=== PATIENT | female | born 1995 | race Caucasian/White ===

== ENCOUNTER 2019-02-14 13:10 | Day surgery (SDC) | payer OTHER ==
[2019-02-14 13:49] VITALS: BP 118/80; TEMP 98.1; BMI 26.8
[2019-02-14] MEDS ORDERED: hydrALAZINE 20 MG/ML VIAL SLOW IVP PRN (14:16)
--- NOTE | 2019-02-14 14:18 | PDOC.LDHP ---
Labor and Delivery H&P HPI: Here here for CTX Patient miguel Scherer 23 yo G1 at 39.4 weeks here for irregular CTX, no LOF, no VB. Good FM. She has an IOL for 02/28. CTC started at 0300. Review of Systems: Completed and as mehran HPI Current gestational age (weeks): 39 (4 days) Dating criteria: last menstrual period Grav: 1 Para: 0 Current complications: none Abnormal US findings: No Past Medical History: None FHX: Aortic Anerysm...but her past eval was negative Current medications: pre- vitamins Previous surgical history: none Allergies/Adverse Reactions: Allergies Allergy/AdvReac Type Severity Reaction Status Date / Time No Known Allergies Allergy Verified 02/14/19 13:41 Social history: none - Physical Exam Vital signs reviewed and normal: yes (118/71 afebrile 78) General: NAD Heart: RRR Lungs: CTAB Abdomen: gravid Extremeties: no edema FHT: category 1 [place] contractions every: contractions every 2 min - Vaginal Exam cm dilated: 1 Effacement: 50% Station: -2 - Assessment Full term, latent phase, neg GBS and med HX. NST cat 1 - Plan Plan: observation in L&D (Recheck in 2 hours. Pain control prn)
--- NOTE | 2019-02-14 15:49 | PDOC.EVN ---
Event Note - Event Note Event Note: checked at 2 hours unchanged contractions spaced out to 5-10 patient feeling contractions have weakened Will send home with strong return precautions, contractionsn q5min, ROM, decreased FM, or fever
== END 2019-02-14 15:50 | disposition home or self-care (01) ==
LOC: L&D/OP 13:10
PROVIDERS: ATTEND Obstetrics & Gynecology
DX: O47.1 False labor at or after 37 completed weeks of gestation (principal); Z3A.39 39 weeks gestation of pregnancy
CPT/HCPCS: 99283

== ENCOUNTER 2019-02-25 22:06 | Inpatient (IN) | payer OTHER ==
[2019-02-25 22:37] VITALS: BMI 26.2
--- NOTE | 2019-02-25 22:50 | PDOC.LDHP ---
Labor and Delivery H&P Chief complaint: contractions HPI: post term co ctx. Current gestational age (weeks): 40 Due date: 02/20/19 Dating criteria: last menstrual period, first trimester ultrasound Grav: 1 OB History Details: uncomplicated Current complications: none Abnormal US findings: No Past Medical History: fh of aortic anurysm pt screening negative Current medications: pre-[place] vitamins Previous surgical history: none Allergies/Adverse Reactions: Allergies Allergy/AdvReac Type Severity Reaction Status Date / Time No Known Allergies Allergy Verified 02/25/19 22:26 Social history: none - Physical Exam Vital signs reviewed and normal: yes General: NAD, resting, breathing through contractions Heart: RRR Lungs: CTAB Abdomen: NTTP Extremeties: no edema FHT: category 1 (no decels. minimal accels) - Vaginal Exam cm dilated: 1 Effacement: 90% Station: -2 - OB Labs Blood type: O RH: positive Antibody Screen: negative HIV: negative RPR: negative HEPSAg: negative GBS: negative Urine drug screen: negative Rubella: immune - Assessment L&D Assessment: term patient in labor - Plan Plan: admit to L&D, labor augmentation if indicated
[2019-02-25] MEDS ORDERED: FLU VACC QS2019-20(6MOS UP)/PF 60 MCG/0.5 ML SYRINGE IM ONE (23:00)
[2019-02-25] MEDS ORDERED: Butorphanol Tartrate 1 MG/ML VIAL SLOW IVP PRN (23:04)
[2019-02-25] MEDS ORDERED: HYDROcodone/Acetaminophen 5/325 mg Tablet PO PRN ×2 (23:04)
[2019-02-25] MEDS ORDERED: hydrALAZINE 20 MG/ML VIAL SLOW IVP PRN (23:04)
[2019-02-25] MEDS ORDERED: Lidocaine 1% (PF) 30 ML VIAL SC PRN (23:04)
[2019-02-25] MEDS ORDERED: Ondansetron PF 4 MG/2 ML Vial IVP PRN (23:04)
[2019-02-25] MEDS ORDERED: Promethazine HCl 25 MG/ML VIAL IM PRN (23:04)
[2019-02-25] MEDS ORDERED: Ibuprofen 800 MG TAB PO PRN (23:04)
[2019-02-25] MEDS ORDERED: NS / Oxytocin 40 units/1000ml 1,000 ML IV PRN (23:04)
[2019-02-25] MEDS ORDERED: Lactated Ringer's 1,000 ML IV SCH (23:15)
[2019-02-25] MEDS ORDERED: NS w/ Oxytocin 10 units 500 ML IV SCH (23:15)
[2019-02-25 23:17] LABS: Hemoglobin 12.8 g/dL (12.0-16.0); Mean Corpuscular HGB CONC 35.2 g/dL (32.0-36.0); Mean Corpuscular Volume 82.3 fL (78.0-98.0); Mean Platelet Volume 8.3 fL (7.4-10.4); Platelet Count 180 thou/uL (130-400); RBC Distribution Width 12.3 % (11.5-14.5); Red Blood Cell (RBC) Count 4.43 mill/uL (4.20-5.40); White Blood Cell (WBC) Count 14.3 thou/uL (4.8-10.8)
[2019-02-25] MEDS: Lactated Ringer's 1,000 ML IV SCH (23:53)
[2019-02-25 23:55] LABS: HBSAg Index 0.17 S/CO (0-0.99); Hep B Surf Ag Non-Reactive S/CO (NonReactive)
[2019-02-25 23:58] LABS: Syphilis Antibody Nonreactive (Nonreactive); Syphilis Antibody Index 0.04 S/CO (<1.00 Non-Reactive)
[2019-02-26] MEDS ORDERED: Fentanyl 4 mcg/Bup 0.1% Cadd 100 ML ONE ×2 (00:39→06:18)
[2019-02-26] MEDS ORDERED: Acetaminophen 325 MG TAB PO PRN (02:54)
[2019-02-26] MEDS ORDERED: ePHEDrine/0.9% NaCl/PF SYRINGE 50 mg/10 ml SLOW IVP PRN (02:54)
[2019-02-26] MEDS ORDERED: Ondansetron PF 4 MG/2 ML Vial IVP PRN (02:54)
[2019-02-26] MEDS ORDERED: Hydrocerin (Eucerin) Cream 120 gm Jar TOP PRN (02:54)
[2019-02-26] MEDS ORDERED: Naloxone HCl 0.4 mg/ml Vial IV PRN ×2 (02:54)
[2019-02-26] MEDS ORDERED: Fentanyl 4 mcg/Bup 0.1% Cadd 100 ML in Premix Bag 1 BAG EPIDURAL SCH (02:54)
[2019-02-26] MEDS ORDERED: Promethazine HCl 25 MG/ML VIAL IM PRN (02:54)
[2019-02-26] MEDS ORDERED: Lactated Ringer's 500 ML IV PRN (02:54)
[2019-02-26] MEDS ORDERED: diphenhydrAMINE 50 MG/ML VIAL IVP PRN (02:54)
[2019-02-26] MEDS: Lactated Ringer's 1,000 ML IV SCH (03:17)
[2019-02-26] MEDS ORDERED: Lidocaine 1% (PF) 30 ML VIAL ONE (07:58)
[2019-02-26] MEDS ORDERED: NS / Oxytocin 40 units/1000ml 1,000 ML ONE (07:58)
--- NOTE | 2019-02-26 08:51 | PDOC.OPDEL ---
OB Operative/Delivery Note Delivery Dr/Surgeon: Gilmer Pre-Delivery Diagnosis: active labor Procedure/Post Delivery Dx: spontaneous vaginal delivery Weeks gestation: 40 Anesthesia: epidural - Findings A Sex: female - 1 min: 8 - 5 min: 9 - Additional Findings/Plan Placenta delivered: spontaneous Repaired Obstetrical Laceration: 1st degree Estimated blood loss: 250ml qbl Post delivery plan: routine recovery
[2019-02-26] MEDS ORDERED: Preparation H Ointment 28 GM TUBE PR PRN (08:53)
[2019-02-26] MEDS ORDERED: Lanolin Ointment 7 GM TUBE TOP PRN (08:53)
[2019-02-26] MEDS ORDERED: hydrALAZINE 20 MG/ML VIAL SLOW IVP PRN (08:53)
[2019-02-26] MEDS ORDERED: Bisacodyl 10 MG SUPP PR PRN (08:53)
[2019-02-26] MEDS ORDERED: Milk Of Magnesia 30 ML UDCUP PO PRN (08:53)
[2019-02-26] MEDS ORDERED: Adacel (T-DAP) 0.5 ML SYRINGE IM ONE (08:53)
[2019-02-26] MEDS ORDERED: Benzocaine-Menthol 82.5 ML CAN TOP PRN (08:53)
[2019-02-26] MEDS ORDERED: NS / Oxytocin 40 units/1000ml 1,000 ML IV SCH (09:00)
[2019-02-26] MEDS ORDERED: Bupivacaine 0.25% HCL 30 ML VIAL ONE (11:11)
[2019-02-26] MEDS: Ibuprofen 800 MG TAB PO SCH ×2 (11:52→19:46)
[2019-02-26] MEDS: Prenatal Vitamin 1 TAB PO SCH (12:07)
[2019-02-26] MEDS: Docusate Calcium (SURFAK) 240 MG CAP PO SCH ×2 (12:07→19:46)
[2019-02-26] MEDS: Ferrous Sulfate 325 MG TAB PO SCH (12:08)
[2019-02-27] MEDS: Ibuprofen 800 MG TAB PO SCH ×3 (03:59→21:23)
[2019-02-27] MEDS: Ferrous Sulfate 325 MG TAB PO SCH ×2 (08:55→15:50)
[2019-02-27] MEDS: Prenatal Vitamin 1 TAB PO SCH (08:55)
[2019-02-27] MEDS: Docusate Calcium (SURFAK) 240 MG CAP PO SCH ×2 (08:56→21:23)
[2019-02-27] MEDS ORDERED: FLU VACC QS2019-20(6MOS UP)/PF 60 MCG/0.5 ML SYRINGE IM ONE (09:00)
[2019-02-27] MEDS: traMADol HCl 50 MG TAB PO PRN ×2 (14:06→20:26)
--- NOTE | 2019-02-27 14:52 | PDOC.PP ---
Post Progress Note Post Day #: 1 PO intake tolerated: yes Flatus: yes Ambulation: yes Vital Signs (12 hours) Temp Pulse Resp BP Pulse Ox 02/27/19 08:15 98.0 F 72 12 113/76 97 02/27/19 06:00 97.6 F 82 18 113/71 Weight Weight 183 lb - Physical Examination General: NAD Respiratory: non-labored breathing Abdominal: no distention, appropriately TTP Fundus firm & at: umb-2 Neurological: no gross focal deficits Psychiatric: normal affect Result Diagrams: 02/25/19 23:06 Additional Labs: Post Labs Blood Type O POSITIVE 02/25/19 23:43 Hep Bs Antigen Non-Reactive S/CO (NonReactive) 02/25/19 23:06 - Assessment/Plan PPD1 s/p TSVD VSSAF doing well lochia < menses pain controlled Rh pos RImm Cont PP care, home tomorrow
[2019-02-28] MEDS: Ibuprofen 800 MG TAB PO SCH (06:08)
[2019-02-28] MEDS: traMADol HCl 50 MG TAB PO PRN (07:45)
[2019-02-28] MEDS: Prenatal Vitamin 1 TAB PO SCH (07:45)
[2019-02-28] MEDS: Ferrous Sulfate 325 MG TAB PO SCH (07:47)
[2019-02-28] MEDS: Docusate Calcium (SURFAK) 240 MG CAP PO SCH (07:47)
[2019-02-28 08:40] VITALS: BP 113/68; TEMP 99
== END 2019-02-28 12:55 | disposition home or self-care (01) | DRG 807 ==
LOC: L&D/OP 22:06 → L&D 23:47 → 3SW 02-26 11:30
PROVIDERS: ADMIT Obstetrics & Gynecology; ATTEND Obstetrics & Gynecology
PROC: 10E0XZZ Delivery of Products of Conception, External Approach (ICD-10-PCS; principal; 2019-02-25)
PROC: 0HQ9XZZ Repair Perineum Skin, External Approach (ICD-10-PCS; 2019-02-25)
PROC: 3E0234Z Introduction of Serum, Toxoid and Vaccine into Muscle, Percutaneous Approach (ICD-10-PCS; 2019-02-25)
DX: O70.0 First degree perineal laceration during delivery (principal); Z37.0 Single live birth; Z3A.40 40 weeks gestation of pregnancy
CPT/HCPCS: 36415; 85027; 86780; 86850; 86900; 86901; 87340; 90471; 90686; G0008; J2001; J2590; S0020